=== PATIENT | female | born 1975 | race Caucasian/White ===

== ENCOUNTER 2016-12-22 11:05 | Emergency (ER) | payer OTHER ==
[~2016-12-22] VITALS: Ht 162.6 cm; Wt 73.0 kg
--- NOTE | 2016-12-22 11:14 | ED GI/GU/ABDOMINAL COMPLAINT ---
History of Present Illness General Chief Complaint: Abdominal Pain/Flank Pain Stated Complaint: ABD PAIN Source: patient Exam Limitations: no limitations Vital Signs & Intake/Output Vital Signs & Intake/Output Vital Signs Date Time Temp Pulse Resp B/P B/P Pulse O2 O2 Flow FiO2 Mean Ox Delivery Rate 12/22 1508 97.6 75 18 151/81 100 Room Air 12/22 1107 98.4 87 20 156/100 98 Room Air Allergies Coded Allergies: Penicillins (UNKNOWN 12/22/16) tramadol (SEIZURES 12/22/16) Reconcile Medications Ketorolac Tromethamine 10 MG TABLET 1 TAB PO TID PRN PAIN Ondansetron HCl (Zofran) 4 MG TABLET 1 TAB PO Q6-8P PRN NAUSEA Oxycodone HCl/Acetaminophen (Percocet 5-325 MG Tablet) 5 MG-325 MG TABLET 1 TAB PO BID PRN PAIN Triage Nurses Notes Reviewed? yes ? N Is pt currently ? No Duration: constant Timing: recent history Quality/Severity: sharpness, severe, stabbing Severity Numbers: 7 Location: left lower quadrant Radiation: no radiation Activities at Onset: none HPI: Patient is a 41-year-old female who is a history of who states that approximately 4 weeks ago she had a spontaneous miscarriage where she was for approximately 9 weeks prior where she was seen by her NONFARM ANIMAL CARETAKER in [place] at that time patient had a follow-up appointment 2 weeks later to her NONFARM ANIMAL CARETAKER received an ultrasound with concerns of her chain products and a left ovarian cyst and was advised to follow-up with her NONFARM ANIMAL CARETAKER after her next menstrual cycle. Patient has not had a menstrual cycle since her miscarriage. Patient however has had intermittent minimal vaginal spotting symptoms since but no passage of tissue. Patient states that on Friday she had a gradual onset of nausea and bloating abdominal sensation in left lower quadrant pain. Patient since has had episodes of nonbloody emesis and decreased by mouth intake however today she states that she can tolerate sips of liquids and toast. Patient's last bowel movement was Friday. Patient denies any fevers chills cough shortness of breath back pain dysuria hematuria or vaginal bleeding or discharge. Patient does state that approximately 3 months ago she had an acute onset of seizure-like activity where she was evaluated by her doctors in [place] where they were suspicious seizure induced tramadol administration (GRACE FERNANDEZ) Past History Travel History Traveled to [place] past 21 day No Medical History Any Pertinent Medical History? see below for history Neurological: seizure LITIGATION EXAMINER/Reproductive: miscarriage Surgical History Surgical History: cholecystectomy, hernia repair-umbilical Psychosocial History What is your primary language Maori Tobacco Use: Quit >30 days ago ETOH Use: denies use Illicit Drug Use: denies illicit drug use Family History Hx Contributory? No (GRACE FERNANDEZ) Review of Systems Review of Systems Constitutional: Reports: see HPI, chills. EENTM: Reports: no symptoms. Respiratory: Reports: no symptoms. Cardiovascular: Reports: no symptoms. GI: Reports: see HPI, abdominal pain. Genitourinary: Reports: see HPI. Musculoskeletal: Reports: no symptoms. Skin: Reports: no symptoms. Neurological/Psychological: Reports: no symptoms. Hematologic/Endocrine: Reports: no symptoms. Immunologic/Allergic: Reports: no symptoms. All Other Systems: Reviewed and Negative (GRACE FERNANDEZ) Physical Exam Physical Exam General Appearance: no apparent distress, alert, comfortable Gastrointestinal: normal bowel sounds, soft, MODERATE LEFT LOWER QUADRANT PELVIC PAIN. nO REBOUND TENDERNESS NO RIGHT LOWER QUADRANT PAIN NO RIGHT UPPER QUADRANT PAIN Comments: HEENT: Normal EENT exam. Neck: Supple, no lymphadenopathy, normal range of motion without pain or tenderness Back: Nontender, no CVA tenderness. Cardiovascular: Regular rate and rhythms no murmurs rubs or gallops, normal JVP Respiratory: Chest nontender. No respiratory distress.breath sounds clear to auscultation bilaterally Extremity: No edema, no calf tenderness to palpation, normal and equal pulses. Neuro: Alert oriented x3, motor sensory normal, Skin: No appreciable rash on exposed skin, skin is warm and dry. Psych: Mood and affect is normal, memory and judgment is normal. Core Measures ACS in differential dx? No Severe Sepsis Present: No Septic Shock Present: No (GRACE FERNANDEZ) Progress Differential Diagnosis: AAA, AMI, appendicitis, biliary colic, bowel obstruction , diverticulitis, ectopic , endometritis, esophageal varices, gastritis , hepatitis, hernia, hemorrhoids, ischemic bowel, inflamm bowel dis, intrauterine , kidney stone, ovarian cyst, ovarian torsion, pancreatitis, PID/cervicitis, peptic ulcer, PUD/GERD, perforated viscous, SBO, threatened AB, UTI/pyelo Plan of Care: Orders Procedure Date/time Status Add-on Test (ER Only) 12/22 1442 Active Add-on Test (ER Only) 12/22 1306 Active URINE 12/22 1218 Complete HUMAN BETA HCG TITRE 12/22 1218 Complete URINALYSIS 12/22 1125 Complete HUMAN BETA HCG SCREEN 12/22 1125 Complete COMPREHENSIVE METABOLIC PANEL 12/22 112 Complete CBC WITHOUT DIFFERENTIAL 12/22 112 Complete Laboratory Tests 12/22/16 1218: Anion Gap 12, Estimated GFR > 60, BUN/Creatinine Ratio 15.0, Glucose 83, Calcium 9.4, Total Bilirubin 0.7, AST 17, ALT 21, Alkaline Phosphatase 77, Total Protein 7.4, Albumin 4.2, Globulin 3.2, Albumin/Globulin Ratio 1.3, Beta HCG, Quant 38.7 , Total Beta HCG POSITIVE, CBC w Diff NO MAN DIFF REQ, RBC 4.13 L, MCV 94.0, MCH 31.9 H, RDW 13.5, MPV 9.0, Gran % 71.2, Lymphocytes % 17.0 L, Monocytes % 8.3, Eosinophils % 3.0, Basophils % 0.5, Absolute Granulocytes 6.0, Absolute Lymphocytes 1.4, Absolute Monocytes 0.7 H, Absolute Eosinophils 0.3, Absolute Basophils 0, PUBS MCHC 33.9, Urine Color YEL, Urine Clarity HAZY H, Urine pH 6.0, Ur Specific [place] 1.025, Urine Protein NEG, Urine Ketones NEG, Urine Nitrite NEG, Urine Bilirubin NEG, Urine Urobilinogen 0.2, Ur Leukocyte Esterase NEG, Ur Microscopic SEDIMENT EXAMINED, Urine RBC 5-10 H, Urine WBC 1-3 H, Ur Epithelial Cells MANY H, Urine Bacteria MOD H, Urine Mucus MANY H, Urine Hemoglobin LARGE H, Urine Glucose NEG, Urine Test POSITIVE Patient understood and this will examination was in no apparent distress 12/22/2016 1:00:08 PM patient had no change in symptoms with ketorolac. Blood work was unremarkable however there is mild suspicion of kidney stone which a CT scan was ordered after blood work and ultrasound was obtained. Patient does have concerns of hemorrhagic cyst left ovary I discussed results with patient Patient still resting comfortably at bedside 12/22/2016 1:46:31 PM patient was given morphine and had complete resolution of pain. Patient again is resting comfortably at bedside CT scan is pending Patient did have positive urine and beta screen was positive however at this time my suspicion of positive results are most likely due to patient's recent . CT scan was discontinued Beta HCG titer is pending Beta hCG titer value mostly likely indicates patient has a resolved miscarriage Upon discharge patient looks well no apparent distress and will comply with discharge instructions and had no questions. Patient also states that she recently moved to the area was requesting primary care doctor and a new NONFARM ANIMAL CARETAKER however patient does have establishment with an OB/ LITIGATION EXAMINER [place] where she was given copies of all blood work and ultrasound findings. Patient was strongly advised to follow-up with NONFARM ANIMAL CARETAKER. Discussed this disposition plan with Dr. Antonio who agrees. (BEVERLY HERNANDEZ,GRACE) Diagnostic Imaging: Viewed by Me: Ultrasound. Radiology Impression: SEE COMMENTS Initial ED EKG: none Comments: PATIENT: MALATHI CONDE PRESENT AGE: 41 PATIENT ACCOUNT NO: [id number] : 77 LOCATION: [facility] ORDERING PHYSICIAN: GRACE HERNANDEZ SERVICE DATE: 12/22/16 EXAM TYPE: US - US-TRANSVAGINAL EXAMINATION: US PELVIS TRANSABDOMINAL US PELVIS TRANSVAGINAL CLINICAL INFORMATION: 41-year-old woman with miscarriage 4 weeks ago. Spotting and discharge this week. Recent ultrasound demonstrated a left ovarian cyst. COMPARISON: None. TECHNIQUE: Transabdominal and transvaginal pelvic ultrasound. A transvaginal study was performed in addition to the transabdominal study which did not yield an adequate examination of the uterus and ovaries due to superimposed distended gas-filled loops of bowel. FINDINGS: The uterus is normal in size and appearance given the clinical context, measuring 9.2 x 5.7 x 6.6 cm longitudinally, anteroposteriorly and transversely. The endometrial stripe thickness is normal, measuring 0.1 cm in thickness. No focal vascularized endometrial tissue is visualized. The cervical length is normal measuring 2.2 cm. The ovaries bilaterally are visualized and appear normal, with the right ovary measuring 2.8 x 1.7 x 2.8 cm and the left ovary measuring 2.8 x 2.5 x 2.7 cm. Normal color and spectral Doppler flow is seen within both ovaries. Within the left ovary, there is a 1.0 x 0.7 x 1.1 cm hypoechoic avascular rounded structure that could reflect a hemorrhagic cyst. No adnexal mass or free fluid collection seen. IMPRESSION: No sonographic evidence of retained products. (GRACE FERNANDEZ) Departure Departure Disposition: HOME OR SELF CARE Condition: Stable Clinical Impression Primary Impression: Abdominal pain Secondary Impressions: Hemorrhage of left ovary Referrals: ABDULLAHI AMEZCUA DO PATIENT HAS NO PRIMARY CARE DR (PCP/Family) Additional Instructions: As discussed follow-up with your NONFARM ANIMAL CARETAKER tomorrow and/or establish new NONFARM ANIMAL CARETAKER Dr. Amezcua for further evaluation treatment. Begin the prescription of ketorolac for pain and inflammation begin the prescription of Zofran for nausea and Percocet for breakthrough pain relief. If symptoms worsen return to emergency room. This week please follow up and establish [facility] practice for primary care establishment. Departure Forms: Customer Survey General Discharge Information Prescriptions: Current Visit Scripts Oxycodone HCl/Acetaminophen (Percocet 5-325 MG Tablet) 1 TAB PO BID PRN PAIN #10 TAB Ketorolac Tromethamine 1 TAB PO TID PRN PAIN #15 TAB Ondansetron HCl (Zofran) 1 TAB PO Q6-8P PRN NAUSEA #15 TAB (GRACE FERNANDEZ) PA/ASSEMBLER TRUCK TRAILER Co-Sign Statement Statement: ED Attending supervision documentation- [] I saw and evaluated the patient. I have also reviewed all the pertinent lab results and diagnostic results. I agree with the findings and the plan of care as documented in the PA's/ASSEMBLER TRUCK TRAILER's documentation. [X] I have reviewed the ED Record and agree with the PA's/ASSEMBLER TRUCK TRAILER's documentation. [] Additions or exceptions (if any) to the PAs/ASSEMBLER TRUCK TRAILER's note and plan are summarized below: [] (ANDREA LOCKHART,JER Mahan)
[2016-12-22 12:30] LABS: ABSOLUTE BASOPHIL COUNT 0 /CUMM (0.0-0.2); ABSOLUTE EOSINOPHIL COUNT 0.3 /CUMM (0.0-0.7); ABSOLUTE LYMPH COUNT 1.4 /CUMM (1.2-3.4); ABSOLUTE MONOCYTE COUNT 0.7 /CUMM (0.10-0.60); BASOPHIL % 0.5 % (0.0-2.0); GRANULOCYTE % 71.2 % (42.2-75.2); HEMATOCRIT 38.8 % (37-47); MEAN CORPUSCULAR HGB 31.9 PG (27.0-31.0); MEAN CORPUSCULAR HGB CONC 33.9 G/DL (33.0-37.0); PLATELET COUNT 321 /CUMM (130-400); RBC DISTRIBUTION WIDTH 13.5 % (11.5-14.5); RED BLOOD CELL CT 4.13 /CUMM (4.20-5.40); WHITE BLOOD CELL COUNT 8.4 /CUMM (4.8-10.8)
--- NOTE | 2016-12-22 12:44 | ULTRASOUND REPORT ---
EXAMINATION: US PELVIS TRANSABDOMINAL US PELVIS TRANSVAGINAL CLINICAL INFORMATION: 41-year-old woman with miscarriage 4 weeks ago. Spotting and discharge this week. Recent ultrasound demonstrated a left ovarian cyst. COMPARISON: None. TECHNIQUE: Transabdominal and transvaginal pelvic ultrasound. A transvaginal study was performed in addition to the transabdominal study which did not yield an adequate examination of the uterus and ovaries due to superimposed distended gas-filled loops of bowel. FINDINGS: The uterus is normal in size and appearance given the clinical context, measuring 9.2 x 5.7 x 6.6 cm longitudinally, anteroposteriorly and transversely. The endometrial stripe thickness is normal, measuring 0.1 cm in thickness. No focal vascularized endometrial tissue is visualized. The cervical length is normal measuring 2.2 cm. The ovaries bilaterally are visualized and appear normal, with the right ovary measuring 2.8 x 1.7 x 2.8 cm and the left ovary measuring 2.8 x 2.5 x 2.7 cm. Normal color and spectral Doppler flow is seen within both ovaries. Within the left ovary, there is a 1.0 x 0.7 x 1.1 cm hypoechoic avascular rounded structure that could reflect a hemorrhagic cyst. No adnexal mass or free fluid collection seen. IMPRESSION: No sonographic evidence of retained products.
[2016-12-22 15:08] VITALS: BP 151/81
[2016-12-22] MEDS ORDERED: KETOROLAC TROME10 M1 PO (15:13)
[2016-12-22] MEDS ORDERED: PERCOCET 5-3251 EACH PO (15:13)
[2016-12-22] MEDS ORDERED: ZOFRAN4 M2 PO (15:13)
== END 2016-12-22 16:06 ==
LOC: ERH 11:05
PROVIDERS: Physician Assistant
DX: N83.8 Other noninflammatory disorders of ovary, fallopian tube and broad ligament (principal)
CPT/HCPCS: 81001; 81025; 96374; 96375; J1885; J2405

== ENCOUNTER 2017-02-19 15:30 | Emergency (ER) | payer OTHER ==
[~2017-02-19] VITALS: Ht 162.6 cm; Wt 73.5 kg
[~2017-02-19 15:30] MED LIST: KETOROLAC TROME10 M1 PO; PERCOCET 5-3251 EACH PO; ZOFRAN4 M2 PO
--- NOTE | 2017-02-19 16:56 | ED GI/GU/ABDOMINAL COMPLAINT ---
History of Present Illness General Chief Complaint: Abdominal Pain/Flank Pain Stated Complaint: ABD PAIN/BLOOD IN STOOL Source: patient, old records Exam Limitations: no limitations Vital Signs & Intake/Output Vital Signs & Intake/Output Vital Signs Date Time Temp Pulse Resp B/P B/P Pulse O2 O2 Flow FiO2 Mean Ox Delivery Rate 02/19 1720 98.8 73 20 130/84 100 Room Air 02/19 1700 Room Air 02/19 1548 98.5 85 16 160/97 99 Room Air Allergies Coded Allergies: Penicillins (UNKNOWN 12/22/16) tramadol (SEIZURES 12/22/16) Reconcile Medications Multivitamin (Multi-Day Vitamins) 1 EACH TABLET 1 TAB PO DAILY SUPPLEMENT ( Reported) Ondansetron (Zofran Odt) 4 MG TAB.RAPDIS 1 TAB SL TID PRN nausea Oxycodone HCl/Acetaminophen (Percocet 5-325 MG Tablet) 5 MG-325 MG TABLET 1 TAB PO BID pain Vitamin B Complex (Super B-50 Complex) 1 EACH CAPSULE 1 CAP PO DAILY SUPPLEMENT (Reported) Triage Note: PT REPORTS INCREASE IN ULCERATIVE COLITIS SYMPTOMS SINCE FRIDAY WITH APPROX 12 BM'S WITH BRB TODAY. REPORTS CONSTANT LOWER TRANSVERSE ABDOMINAL PAIN 03/03. GI SPECIALIST IS DR DAVILA OF [facility]. LAST PREDNISONE TAPER OVER A YEAR AGO. Triage Nurses Notes Reviewed? yes LMP (ages 10-50): last week ? n Is pt currently ? No Onset: Abrupt Duration: day(s): (6), constant, waxing and waning Timing: recent history Quality/Severity: aching, cramping Severity Numbers: 6 Location: generalized abdomen Radiation: no radiation Activities at Onset: none Prior Abdominal Problems: similar symptoms No Modifying Factors: none Associated Symptoms: nausea HPI: 41-year-old female with history of ulcerative colitis presents to the ER for evaluation going to 6 day history of frequent bowel movements with associated bright red blood per rectum nausea and generalized crampy abdominal pain. The patient states she is not any longer followed by a optical effects layout person as she is not had any symptoms approximately urine a half. She denies vomiting. She denies smoking no alcohol use. No history of abdominal surgeries. She is not taken anything for pain no fever no chills no urinary complaints or modifying factors or associated symptoms. (ODALIS HERNANDEZ,GRACE) Past History Travel History Traveled to [place] past 21 day No Medical History Any Pertinent Medical History? see below for history Neurological: seizure EENT: NONE Cardiovascular: NONE Respiratory: NONE Gastrointestinal: ULCERATIVE COLITIS Hepatic: NONE Renal: NONE Musculoskeletal: NONE Psychiatric: NONE Endocrine: NONE Blood Disorders: NONE QUARTZ ORIENTATOR/Reproductive: miscarriage Surgical History Surgical History: cholecystectomy, hernia repair-umbilical Psychosocial History What is your primary language Japanese Tobacco Use: Quit >30 days ago ETOH Use: occasional use Illicit Drug Use: denies illicit drug use Family History Hx Contributory? No (GRACE JOHN) Review of Systems Review of Systems Constitutional: Reports: see HPI. All Other Systems: Reviewed and Negative Comments Review of systems: See HPI, All other systems negative. Constitutional, no chills no fever, no malaise HEENT: No visual changes no sore throat no congestion, Cardiovascular: No chest pain , no palpitation , Skin: no rashes, no change in skin Respiratory: No dyspnea no cough no sputum GI: nausea no vomiting, diarrhea, no bloating/constipation : No dysuria No hematuria, no frequency, no discharge Muscle skeletal: No joint pain, no joint swelling, no back pain, no neck pain, Neurologic: no headache Psych: No stress no depression,. Heme/endocrine: No bruising no bleeding Immunology: No lymphadenopathy (GRACE JOHN) Physical Exam Physical Exam General Appearance: well developed/nourished, no apparent distress, alert, awake Gastrointestinal: soft Comments: Well-developed well-nourished person in no acute distress HEENT: Normal EENT exam; PERRL, EOMI, HEAD is atraumatic. moist mucous membranes. Neck: Supple, no lymphadenopathy, normal range of motion Back: Nontender, no CVA tenderness. Full range of motion Cardiovascular: Regular rate and rhythms no murmurs rubs Respiratory: Chest nontender.There were no bony deformities, no asymmetry. No respiratory distress. Patient speaking in full complete sentences. Breath sounds clear to auscultation bilaterally: NO W/R/R Abdomen: Soft, diffusely tender nondistended, no appreciable organomegaly. Normal bowel sounds. No rebound/guarding, No appreciable enlargement of the abdominal aorta, No ascites. Extremity: No edema, full range of motion of extremities Neuro: Alert oriented x3, motor sensory normal. There were no obvious focal neurologic abnormalities. Skin: No appreciable rash on exposed skin, skin is warm and dry. Psych: Mood and affect is normal, memory and judgment is normal. Core Measures ACS in differential dx? No Severe Sepsis Present: No Septic Shock Present: No (ODALIS HERNANDEZ,GRACE) Progress Differential Diagnosis: AMI, appendicitis, biliary colic, bowel obstruction, colon cancer, cholecystitis, diverticulitis, ectopic , gastritis, hepatitis, hernia, inflamm bowel dis, pancreatitis, peptic ulcer, PUD/GERD, perforated viscous, SBO, threatened AB, UTI/pyelo Plan of Care: Orders Procedure Date/time Status Saline Lock 02/20 1656 Active LIPASE 02/19 165 Complete COMPREHENSIVE METABOLIC PANEL 02/19 165 Complete CBC WITHOUT DIFFERENTIAL 02/19 165 Complete AMYLASE 02/19 165 Complete URINE 02/19 1534 Complete URINALYSIS 02/19 1534 Complete Laboratory Tests 02/19/17 1716: Anion Gap 11, Estimated GFR > 60, BUN/Creatinine Ratio 22.2, Glucose 77, Calcium 9.9, Total Bilirubin 0.4, AST 14, ALT 25, Alkaline Phosphatase 99, Total Protein 7.5, Albumin 4.5, Globulin 3.0, Albumin/Globulin Ratio 1.5, Amylase 38, Lipase 52, CBC w Diff NO MAN DIFF REQ, RBC 4.30, MCV 93.7, MCH 30.9, RDW 13.7, MPV 9.4, Gran % 63.2, Lymphocytes % 20.9, Monocytes % 6.9, Eosinophils % 8.9 H, Basophils % 0.1, Absolute Granulocytes 7.0 H, Absolute Lymphocytes 2.3, Absolute Monocytes 0.8 H, Absolute Eosinophils 1.0, Absolute Basophils 0, PUBS MCHC 33.0 02/19/17 1600: Urine Color YEL, Urine Clarity HAZY H, Urine pH 6.0, Ur Specific [place] >= 1.030, Urine Protein NEG, Urine Ketones NEG, Urine Nitrite NEG, Urine Bilirubin NEG, Urine Urobilinogen 0.2, Ur Leukocyte Esterase NEG, Ur Microscopic SEDIMENT EXAMINED, Urine RBC >75 H, Urine WBC RARE, Ur Epithelial Cells MANY H, Urine Crystals RARE [place], Urine Bacteria RARE H, Urine Mucus MOD H, Urine Hemoglobin LARGE H, Urine Glucose NEG, Urine Test NEGATIVE Labs ordered old records reviewed patient medicated morphine and Zofran IV fluids. CASE D/W DR JACOBSON Repeat evaluation the patient has not had any episodes of vomiting dry heaving or diarrhea here in the department and she's been resting completely on her phone I advised need for close follow-up with GI primary care. I believe the patient warrants a requires any imaging at this time she reports pain is improved her abdominal exam is unremarkable at this time discussed with her at length all of her lab results I had an extensive conversation regarding need for close follow up with their primary care physician this week as well as return precautions. I answered all of their questions, they feel comfortable with the plan and follow-up care. I discussed with the patient/family the medications that they will receive. I gave them signs and symptoms that could indicate an adverse reaction. I have advised them to limit their activities until they can see how they respond to the medication. (GRACE JOHN) Initial ED EKG: none (GRACE JOHN) Departure Departure Time of Disposition: 1807 Disposition: HOME OR SELF CARE Condition: Stable Clinical Impression Primary Impression: Abdominal pain Referrals: SHARMILA LOCKHART,QUINTON HERNANDEZ MD,JESSIE (PCP/Family) Additional Instructions: follow up with optical effects layout person dr davis. percocet for breakthrough pain this is a narcotic highly addictive no driving drinking alcohol while taking. Zofran as needed for nausea bland diet clear liquids advance as tolerated return to ER with any concerns Departure Forms: Customer Survey General Discharge Information Prescriptions: Current Visit Scripts Oxycodone HCl/Acetaminophen (Percocet 5-325 MG Tablet) 1 TAB PO BID #10 TAB Ondansetron (Zofran Odt) 1 TAB SL TID PRN nausea #10 TAB (GRACE JOHN) PA/SCHOOL ADJUSTMENT COUNSELOR Co-Sign Statement Statement: ED Attending supervision documentation- [] I saw and evaluated the patient. I have also reviewed all the pertinent lab results and diagnostic results. I agree with the findings and the plan of care as documented in the PA's/SCHOOL ADJUSTMENT COUNSELOR's documentation. [X] I have reviewed the ED Record and agree with the PA's/SCHOOL ADJUSTMENT COUNSELOR's documentation. [] Additions or exceptions (if any) to the PAs/SCHOOL ADJUSTMENT COUNSELOR's note and plan are summarized below: [] (INDIRA LOCKHART,SAÚL)
[2017-02-19 17:20] VITALS: BP 130/84
[2017-02-19] MEDS ORDERED: SUPER B-50 COM1 EACH PO (17:23)
[2017-02-19] MEDS ORDERED: MULTI-DAY VITA1 EACH PO (17:23)
[2017-02-19 17:30] LABS: ABSOLUTE BASOPHIL COUNT 0 /CUMM (0.0-0.2); ABSOLUTE LYMPH COUNT 2.3 /CUMM (1.2-3.4); ABSOLUTE MONOCYTE COUNT 0.8 /CUMM (0.10-0.60); BASOPHIL % 0.1 % (0.0-2.0); EOSINOPHIL % 8.9 % (0-5); GRANULOCYTE % 63.2 % (42.2-75.2); HEMATOCRIT 40.3 % (37-47); MEAN CORPUSCULAR HGB 30.9 PG (27.0-31.0); MEAN CORPUSCULAR VOLUME 93.7 FL (81.0-99.0); MEAN PLATELET VOLUME 9.4 FL (7.4-10.4); PLATELET COUNT 335 /CUMM (130-400); RBC DISTRIBUTION WIDTH 13.7 % (11.5-14.5)
[2017-02-19] MEDS ORDERED: PERCOCET 5-3251 EACH PO (18:09)
[2017-02-19] MEDS ORDERED: ZOFRAN ODT4 M1 SL (18:09)
== END 2017-02-19 18:14 ==
LOC: ERH 15:30
PROVIDERS: Physician Assistant Medical
DX: R10.84 Generalized abdominal pain (principal)
CPT/HCPCS: 81001; 81025; 96374; 96375; J2405